=== PATIENT | male | born 1965 | race Caucasian/White ===

== ENCOUNTER 2016-10-29 06:33 | Emergency (ER) | payer OTHER ==
[~2016-10-29] VITALS: Ht 177.8 cm; Wt 77.3 kg
[2016-10-29 06:37] VITALS: BP 109/59; PULSE 56; RESP 14; TEMP 97.8; O2SAT 99
[2016-10-29] MEDS ORDERED: LIDOCAINE HCL 1% 50 ML VIAL INFIL ONE (07:45)
--- NOTE | 2016-10-29 07:56 | PD ---
HPI . laceration to right middle finger Chief Complaint: Laceration/Skin Injury Time Seen by Provider: 07:02 Travel History International Travel<30 days: No Contact w/Intl Traveler<30days: No Traveled to known affect area: No History of Present Illness HPI 51- year old male presents to the ED complaining of a laceration to his right third digit. The patient reports he was at a hotel where he reached behind a table and was cut by a furniture staple about 30 minutes ago. He reports that he immediately wrapped it in a towel and put pressure on it to stop the bleeding. He reports his pain is currently a 2/10. He does not remember when he last tetanus shot was but reports that it was probably more than five years ago. He is requesting sutures as he is pretty active and feels as if it will help keep the wound closed better. PFSH Past Medical History Medical History: Denies Significant Hx Tetanus Vaccination: > 5 Years Influenza Vaccination: No Past Surgical History Tonsillectomy: Yes Social History Alcohol Use: Yes Tobacco Use: No Substance Use: No Allergies-Medications (Allergen,Severity, Reaction): Coded Allergies: Sulfa (Sulfonamide Antibiotics) (Verified Allergy, Severe, 10/29/16) HIVES Reported Meds & Prescriptions Reported Meds & Active Scripts Active No Active Prescriptions or Reported Medications Review of Systems General / Constitutional: No: Fever, Chills, Weight Gain, Weight Loss, Other Eyes: No: Diploplia, Blurred Vision, Photophobia, Drainage, Redness, Foreign Body Sensation, Pain, Tearing, Blind Spots, Visual changes, Blindness, Other HENT: No: Headaches, Vertigo, Lightheadedness, Sore Throat, Rhinitis, Rhinorrhea, Congestion, Nosebleed, Neck Stiffness, Neck Pain, Masses, Gingival Bleeding, Dental Difficulties, Ear Discharge, Earache, Other Cardiovascular: No: Chest Pain or Discomfort, Palpitations, Irregular Rhythm, Tachycardia, Diaphoresis, Syncope, Dyspnea on exertion, Varicosities, Edema, Cyanosis, Varicosities, Phlebitis, Claudication, Other Respiratory: No: Cough, Shortness of Breath, Wheezing, Sneezing, Orthopnea, Hemoptysis, Stridor, Night Sweats, Pleuritic Pain, Other Gastrointestinal: No: Nausea, Vomiting, Diarrhea, Abdominal Pain, Hematemesis, Hematochezia, Constipation, Changes in Bowel Habits, Indigestion, Dysphagia, Loss of Appetite, Other Genitourinary: No: Urgency, Frequency, Dysuria, Nocturia, Hematuria, Decreased Urinary Output, Oliguria, Hesitancy, Dribbling, Incontinence, Pelvic Pain, Flank Pain, Dyspareunia, Discharge, Dysmenorrhea, Menorrhagia, Metorrhagia, Vaginal Bleeding, Other Musculoskeletal: No: Myalgias, Arthralgias, Limited ROM, Weakness, Cramping, Edema, Pain, Atrophy, Other Skin: Positive Other (laceration to right third digit), No Rash, No Itching, No Dryness, No Lumps, No Hives, No Change in Pigmentation, No Change in nails, No Alopecia, No Lesions, No Breast Lumps, No Breast Tenderness, No Breast Swelling Neurologic: No: Weakness, Dizziness, Syncope, Focal Abnormalities, Coordination Problem, Tremor, Ataxia, Headache, Change in Mentation, Slurred Speech, Paresthesia, Incontinence, Seizures, Sensory Disturbance, Other Psychiatric: No: Anxiety, Depression, Suicidal Ideations, Disorder of Thought, Mood Disorder, Substance Abuse, Homicidal Ideation, Other Endocrine: No: Heat Intolerance, Cold Intolerance, Polyuria, Polydipsia, Other Hematologic/Lymphatic: No: Easy Bruising, Lymph Node Enlargement, Other Physical Exam Narrative GENERAL: AAO 3, no acute distress, well-developed and well-nourished SKIN: Well approximated 2 cm laceration to right third digit. Warm and dry. HEAD: Atraumatic. Normocephalic. EYES: Pupils equal and round. No scleral icterus. No injection or drainage. ENT: No nasal bleeding or discharge. Mucous membranes pink and moist. NECK: Trachea midline. No JVD. CARDIOVASCULAR: Regular rate and rhythm. RESPIRATORY: No accessory muscle use. Clear to auscultation. Breath sounds equal bilaterally. No wheezes, rales or rhonchi. GASTROINTESTINAL: Visual inspection normal MUSCULOSKELETAL: Extremities without clubbing, cyanosis, or edema. No obvious deformities. NEUROLOGICAL: Awake and alert. No obvious cranial nerve deficits. Motor grossly within normal limits. Five out of 5 muscle strength in the arms and legs. Normal speech. PSYCHIATRIC: Appropriate mood and affect; insight and judgment normal. Data Data Last Documented VS Vital Signs Date Time Temp Pulse Resp B/P (MAP) Pulse Ox O2 Delivery O2 Flow Rate FiO2 10/29/16 08:27 97.8 76 16 120/81 (94) 99 10/29/16 06:37 Room Air Orders Orders Lidocaine 1% Inj (50 Ml) (Xylocaine 1% I (10/29/16 07:45) Tetanus/Diphtheria Tox Adult (Tetanus/Di (10/29/16 08:00) MDM Medical Decision Making Medical Screen Exam Complete: Yes Emergency Medical Condition: Yes Medical Record Reviewed: Yes Differential Diagnosis Laceration to right third digit versus Musculoskeletal injury Narrative Course 51- year old male presents to the ED for evaluation of a laceration to his right third digit. The wound appears to be well approximated and already healing well on its own. The patient was offered the options of glue and steri strips versus sutures. The patient opted for sutures as he is a pretty active len and feels as if the wound will be held together better with sutures. 3 sutures were placed without incident. Patient tolerated well. Recommend removal in 7-10 days. Patient will be in [place], he will have this done there. Discussed signs of infection when to go to the nearest emergency department. Tetanus provided ED. Patient verbalized understanding of instructions, questions were answered, and thanked me for their care. I advised them if their condition worsens, please return to the nearest emergency room for further care. Procedures Procedure Narrative 2 cm laceration on right third digit was first anesthesized with 3 mL of 1% Lidocaine. The laceration was then cleaned well with saline. After, using 4-0 prolene three sutures were placed in the right third digit. Wound was then cleaned again, applied antibiotic ointment and wrapped with gauze. The patient was informed that he will need to keep the wound dry and change the dressing daily for the next 2-3 days. He was also made aware that the sutures will need to come out in 7-10 days. Diagnosis Primary Impression: Finger laceration Qualified Codes: S61.212A - Laceration without foreign body of right middle finger without damage to nail, initial encounter Patient Instructions: General Instructions Additional Instructions: Wash area with soap and water daily. Keep a dressing on for the next 2-3 days. Apply thin layer of antibiotic ointment. 3 sutures will need to be removed in 7-10 days. Follow up with your primary care doctor or go to nearest emergency department or urgent care. Med/Other Pt SpecificInfo: No Change to Meds Scripts No Active Prescriptions or Reported Meds Disposition: 01 DISCHARGE HOME Condition: Stable Agatha Cooper Oct 29, 2016 07:56
[2016-10-29] MEDS ORDERED: TETANUS/DIPHTHERIA TOXOID ADULT 0.5 ML VIAL IM ONE (08:00)
[2016-10-29 08:27] VITALS: BP 120/81; TEMP 97.8
== END 2016-10-29 08:29 | disposition home or self-care (01) ==
LOC: NEPD 06:33
DX: S61.212A Laceration without foreign body of right middle finger without damage to nail, initial encounter (principal); W45.8XXA Other foreign body or object entering through skin, initial encounter; Z88.2 Allergy status to sulfonamides; Z23 Encounter for immunization
CPT/HCPCS: 12001; 90471; 90714